=== PATIENT | male | born 1980 | race Caucasian/White ===

== ENCOUNTER → 2023-09-05 | Outpatient (CLI) | payer OTHER ==
[~2023-09-05] MED LIST: ALBU90I INH; ALBU90OI INH; ALBU90OI6 INH; AMOX1XR PO; AMOX500 PO; AZIT250 PO; Amoxicillin875 MG PO; Augmentin 875-1 EACH PO; CEPH500 PO; CODGUAEL PO; CYCL10 PO; DOXY100 PO; FLUT.05NI; HYDACE5 PO; HYDACE5325 PO; IBUP800 PO; LORA1 PO; LORA2 PO; NAPR500 PO; Naprosyn500 MG PO; OLAN20 MM; OMEP10ER PO; OMEP20ER PO; OXYACE5T PO; OXYC10TA19 PO; PENVK500 PO; PROM25 PO; Percocet 5-3251 EACH PO; RXCYCL10 PO; RXHYDACE PO; RXLORA1 PO; RXPENVK250 PO; SULF10OPSA BOTHEYES; SULTRIDS PO; TAMS.4ER PO; TRAM50 PO; Ultram50 MG PO; Veetids 500500 MG PO
== END ==
LOC: LAB 12:21 → LAB SHORT 12:21
DX: N50.811 Right testicular pain (principal); N50.812 Left testicular pain
CPT/HCPCS: 87086